=== PATIENT | female | born 1995 | race African-American/Black ===

== ENCOUNTER 2019-07-09 05:51 | Emergency (ER) | payer SELFPAY ==
[~2019-07-09] VITALS: Ht 162.6 cm; Wt 72.6 kg
[2019-07-09 06:06] VITALS: BP 119/83
--- NOTE | 2019-07-09 06:06 | NUR ---
ED Nurse Note: PT WALKED IN TO ED DUE TO INSECT BITE TO LEFT UPPER ARM WITH SWELLING AND ITCHINESS. PT NOTICED THE BITE SINCE YESTERDAY. NO STATED MEDICAL HISTORY. ALERT AND ORIENTED, VERBALLY RESPONSIVE. NO SOB. AFEBRILE.
[2019-07-09] MEDS ORDERED: DOXYCYCLINE MO100 MG ORAL (06:08)
--- NOTE | 2019-07-09 06:09 | Emergency Room Report ---
History of Present Illness General Chief Complaint: Animal Bite Source: Patient Present Illness HPI This a 24-year-old female with no past medical history. She presents with chief complaint of possible bug bites. She noted some swelling on her left upper arm and right ankle area. Now the rash on the right upper arm is swollen and warm to the touch. Slightly itchy. She saw a small mosquito at work. Denies any complaint. No fever chills but no nausea no vomiting. No drainage. Allergies: Coded Allergies: No Known Allergies (Unverified , 07/09/19) Patient History Past Medical History: see triage record, old chart reviewed Past Surgical History: none Pertinent Family History: none Social History: Denies: smoking Last Menstrual Period: 06/12/19 Now: No : 2 Para: 1 Immunizations: other Reviewed Nursing Documentation: PMH: Agreed; PSxH: Agreed Review of Systems Eye: Denies: eye pain, blurred vision ENT: Denies: ear pain, nose congestion, throat swelling Respiratory: Denies: cough, shortness of breath Cardiovascular: Denies: chest pain, palpitations Gastrointestinal: Denies: abdominal pain, diarrhea, nausea, vomiting Musculoskeletal: Denies: back pain, joint pain Skin: Reports: rash Neurological: Denies: headache, numbness Endocrine: Denies: increased thirst, increased urine Hematologic/Lymphatic: Denies: easy bruising All Other Systems: negative except mentioned in HPI Physical Exam Vital Signs Date Time Temp Pulse Resp B/P (MAP) Pulse Ox O2 Delivery O2 Flow Rate FiO2 07/09/19 05:54 98.2 93 18 119/83 (95) 99 Room Air Vitals normal Sp02 EP Interpretation: reviewed, normal General Appearance: well appearing, no apparent distress, alert Head: normocephalic, atraumatic Eyes: bilateral eye PERRL, bilateral eye EOMI ENT: hearing grossly normal, normal pharynx Neck: full range of motion, supple, no meningismus Respiratory: chest non-tender, lungs clear, normal breath sounds Cardiovascular #1: regular rate, rhythm, no murmur Gastrointestinal: normal bowel sounds, non tender, no mass, no organomegaly, no bruit, non-distended Musculoskeletal: back normal, gait/station normal, normal range of motion, other - Right upper arm: On the posterior aspect of the arm, there is 2 area of hyperemia. Skin is raised and warm to the touch. There appears to be 2 small puncture wounds. No fluctuant area. Full range of motion elbow. Full range of motion of the shoulder. Psychiatric: mood/affect normal Medical Decision Making Diagnostic Impression: Primary Impression: Insect bite Qualified Codes: S40.862A - Insect bite (nonvenomous) of left upper arm, initial encounter; W57.XXXA - Bitten or stung by nonvenomous insect and other nonvenomous arthropods, initial encounter Additional Impression: Cellulitis Qualified Codes: L03.114 - Cellulitis of left upper limb ER Course Patient with insect/bug bite with secondary cellulitis. Will treat with antibiotics. No evidence of any abscess, necrotizing fasciitis or foreign body. No septic joint. Last Vital Signs Date Time Temp Pulse Resp B/P (MAP) Pulse Ox O2 Delivery O2 Flow Rate FiO2 07/09/19 05:54 98.2 93 18 119/83 (95) 99 Room Air Status: unchanged Disposition: HOME, SELF-CARE Condition: Stable Scripts Doxycycline Monohydrate* (DOXYCYCLINE MONOHYDRATE*) 100 Mg Capsule 100 MG ORAL Q12H, #14 CAP 0 Refills Prov: Wisam Lucero MD 07/09/19 Referrals: NOT CHOSEN IPA/,REFERRING (PCP) Additional Instructions: Keep wound clean. Clean first with hydroperoxide and then apply antibiotic ointment. Follow-up with your doctor in 2 3 days for recheck if not better. Return if worse. Wisam Lucero MD Jul 09, 2019 06:09
[2019-07-09 06:12] VITALS: BP 119/83
--- NOTE | 2019-07-09 06:12 | NUR ---
ED Nurse Note: Pt cleared by ermd for discharge. DC instructions/prescription was given and explained to pt and verbalized understanding of teachings. All medical deviecs such as ID band removed. Pt is AAO x4, ambulatory and left with all personal belongings.
== END 2019-07-09 06:12 | disposition home or self-care (01) ==
LOC: EMR 06:02
DX: S40.862A Insect bite (nonvenomous) of left upper arm, initial encounter (principal); L03.115 Cellulitis of right lower limb; W57.XXXA Bitten or stung by nonvenomous insect and other nonvenomous arthropods, initial encounter
CPT/HCPCS: 99282